=== PATIENT | male | born 1945 | race Caucasian/White ===

== ENCOUNTER → 2018-06-19 08:22 | Outpatient (BNVA) | payer MEDICARE, SELFPAY | PROVIDERS: PCP Family Medicine; Visit Provider Nurse Practitioner Adult Health | DX: G30.9 Alzheimer's disease, unspecified (principal); F02.81 Dementia in other diseases classified elsewhere, unspecified severity, with behavioral disturbance | CPT/HCPCS: 99213 ==

== ENCOUNTER 2018-06-27 13:11 | Outpatient (CLI) | payer MEDICARE, SELFPAY ==
[2018-06-27 15:21] LABS: Vitamin B12 1076 pg/mL (193-986)
== END 2018-06-27 13:31 ==
PROVIDERS: PCP Family Medicine; Visit Provider Nurse Practitioner Adult Health
DX: G30.9 Alzheimer's disease, unspecified (principal)
CPT/HCPCS: 36415; 82607

== ENCOUNTER 2018-07-17 00:07 | Outpatient (CLI) | payer MEDICARE, SELFPAY ==
--- NOTE | 2018-07-17 09:30 | MERGEMPI_ITS ---
*[facility]* *[facility]* [address] [place] [address] Myocardial Perfusion Imaging - SPECT Regadenoson Date of study: 07/17/2018 *PATIENT PRESENTATION* Height: 182.9cm (72in) Blood Pressure: Weight: 75kg (165lb) BSA: 1.95m^2 Referring physician: Deonte Ring MD Ordering physician: Maynor Roe Impressions: Normal perfusion by Tc99m Sestamibi Imaging. Summary: 1. Myocardial perfusion imaging: No myocardial perfusion defects noted. No gated images. Indication: R07.9. History: REASON FOR TESTING: APPROXIMATELY TWO WEEKS AGO PATIENT REPORTED RIGHT SIDED CHEST PAIN AND RIGHT SIDED LEG PAIN. THERE WAS NO ASSOCIATED SOB OR NAUSEA WITH THIS EPISODE. PAST MEDICAL HISTORY: HYPOMAGNESIA. BRADYCARDIA. HYPERTENSION. ANXIETY. ALZEIMERS DEMENTIA. SMOKING HISTORY: 20+ PPD. QUIT 1988. EXERCISE: NO PURPOSEFUL DAILY EXERCISE ROUTINE. Risk factors: Hypertension. Dyslipidemia. ALLERGIES: NO KNOWN DRUG ALLERGIES. MEDICATIONS: ASPIRIN 81 MG DAILY. SIMVASTATIN 20 MG DAILY. SERTRALINE 100 MG DAILY. DIVALPROEX 250 MG DELAYED RELEASE BID. CHOLECALCIFEROL DOSE UNKNOWN DAILY. MAGNESIUM OXIDE 400 MG DAILY. Imaging Technique: Protocol: Regadenoson. Acquisition: Gated SPECT; 1 day - rest/stress. The patient was imaged in the supine position. Attenuation correction used. Isotope administration: - Rest. Tc[99m]-sestamibi. Dose: 10.4mCi. Injection time: 09:30 AM. Injection to stress time: 00:45. - Stress. Tc[99m]-sestamibi. Dose: 33.1mCi. Injection time: 11:05 AM. 1-2 min before end of exercise Baseline ECG: SINUS JOSE MANUEL. HR 48 BPM. Stress protocol: +--------+--+ + + !Stage !HR!BP (mmHg) !Comments ! +--------+--+ + + !Baseline!48!182/78 (113)! ! +--------+--+ + + !1 min !65!166/74 (105)!Inject Regadenoson.! +--------+--+ + + !3 min !57!166/86 (113)! ! +--------+--+ + + !6 min !54!160/80 (107)! ! +--------+--+ + + * Stress results: The rate-pressure product for the peak heart rate and blood pressure was 82336bw Hg/min. Stress ECG: STRESS TEST ENDED IN 7 MINUTES & 15 SECONDS. PT EXPERIENCED NO SIGNIFICANT SIDE EFFECTS FROM LEXISCAN INJECTION. NORMAL HEART RATE AND BLOOD PRESSURE RESPONSE TO LEXISCAN INJECITION. NO ECTOPY. NO ANGINA. NO SIGNIFICANT ST SEGMENT CHANGES. Myocardial perfusion: Imaging information: gated. No myocardial perfusion defects noted. Study data: Deonte Ring MD supervised and was readily available during the procedure. This study was interpreted by [facility]. Study status: Routine. Consent: The risks, benefits, and alternatives to the procedure were explained to the patient and informed consent was obtained. Procedure: Initial setup. A baseline ECG was recorded. Surface ECG leads and manual cuff blood pressure measurements were monitored. Heart sounds: Normal. Lung sounds: Normal. Regadenoson stress test. Stress testing was performed, with regadenoson by intravenous bolus, for a total dose of 0.4mgover 10.00sec, followed by a 5ml saline flush. The infusion was terminated due to per protocol. The patient was unable to exercise due to cognitive impairment. Study completion: All catheters inserted during the procedure were removed. The patient tolerated the procedure well and was discharged from the lab. Discharge: The patient left the laboratory in stable condition. Birthdate: Patient birthdate: 1945. Sex: Gender: male. Study date: Study date: 07/17/2018. Study time: 09:30 AM. Electronically signed by Deonte Ring MD 07/17/2018 17:55
[2018-07-17] MEDS: Regadenoson 0.4 MG/5 ML SYR IVP (10:55)
== END 2018-07-17 00:27 ==
PROVIDERS: PCP Family Medicine; Visit Provider Family Medicine
DX: R07.89 Other chest pain (principal); I10 Essential (primary) hypertension
CPT/HCPCS: 78452; 93016; 93018; 93017; J2785

== ENCOUNTER 2018-10-12 10:17 | Inpatient (IN) | payer OTHER, SELFPAY ==
[2018-10-12 10:45] VITALS: BP 118/72; PULSE 50; RESP 20; TEMP 37.2; O2SAT 100
[2018-10-12] MEDS: risperiDONE 1 MG TAB PO ×2 (13:29→21:04)
--- NOTE | 2018-10-12 15:15 | W.PM.HP.N ---
Date of service: 10/12/18 Assessment and Plan (1) Vascular dementia with behavior disturbance: Current visit: Yes Status: Acute Will try to have sitter with Bill as much as we can. Iona needs a break. She is exhausted. Advised her not to come in tomorrow, but ok for Tuesday. Will check in by phone with her. SHAHID Bagley came into the room and cleared it of potentially dangerous items. Scheduled risperidone 1 mg q 6 hrs, round the clock. May need to decrease IF he becomes too sedated. Explained to family that he is here on hospice symptom management so we can figure out what is the best dose for him. Would like to be able to back down to bid for ease of medication administration, but not sure of dose. With behavioral component. Risperidone for now. Is on depakote already, too. Would increase depakote as next step. Try to use redirection as much as possible Sitter would be helpful. (2) Frontotemporal dementia: Current visit: Yes Status: Acute Mixed dementia. (3) Hospice care patient: Current visit: Yes Status: Acute Here on symptom management. Once we get Bill stabilized, will transfer him over to 5 night respite. Again, waiting for [facility] Admission, ideally. family is looking into [facility], too. History of Present Illness Chief Complaint: dementia with agitation, combination vascular and frontotemporal Consults Consult date: 10/12/18 Narrative: 73 yo man recently admitted to hospice about 2 weeks ago with worsening dementia, mixed vascular and frontotemporal type with behavioral disturbance. I saw him once for palliative care on 09/29 and based on his symptoms and reported rate of decline, recommended hospice. Family is trying to get him permanently admitted to [facility], as they live in [place] and proximity would make visiting him easier for his . Have spoken to Dr. Limon from [facility] about him. Family has filled out application. Just waiting for a bed to open up on their memory unit. Today, Mr. Kelly is at [facility] for symptom mangement. The last two days, he has been more agitated than usual. He refused to go to [facility] yesterday. There was a new minibus driver and Bill didn't feel comfortable going with him. The snow was falling and Iona, his , said he wanted to shovel, not go. It's possible that he thought the minibus driver was keeping him from his duties at home. It took Iona a while to get Bill inside. Once inside, she had to lock the door to keep him in. He kept looking at the snow falling and feeling agitated. Their son-in-law came over to help. Yesterday afternoon, the hospice nurse visited and instructed Iona and her family on scheduled risperidone. They gave Bill 1 mg at 2 pm 10/11 and he calmed down in 25-30 minutes. His put him to bed at 6:30 with another tablet. He slept until 1 am and woke up due to having saturated his depends. He wouldn't let her change him entirely so she just took off the depends and put him back to bed. His family noted that he's generally into everything. They recommended we take items out of his room that he could take apart. He has taken apart phones at home. He likes shuffling paper, and writing (though it makes no sense). He used to be an intermediate accountant. Per his family, his home is safe. His hid all knives and they have no guns. Finally, his family suggested that his meat be cut up for him and his food presented just one plate or bowl at a time as he gets confused and overwhelmed with too many choices. Review of Systems Review of Systems All systems reviewed & are unremarkable except as noted in HPI and below Constitutional Reports daytime sleepiness, Reports difficulty sleeping, Reports fatigue, Reports fever(s), Reports poor appetite, Reports weakness and Reports weight loss Eyes Reports requires corrective lenses ENT Reports halitosis and Reports dry mouth Cardiovascular Reports pedal edema Respiratory Denies cough Gastrointestinal Reports early satiety and Reports fecal incontinence Genitourinary Reports urinary incontinence Musculoskeletal Reports muscle weakness Integumentary/Breasts Reports dry skin Neurologic Reports behavioral changes, Reports confusion, Reports lack of coordination, Reports memory loss and Reports weakness Psychiatric Reports behavioral changes, Reports confusion and Reports memory loss Endocrine Reports fatigue [facility] Medical History Hypomagnesemia (Acute) Actinic keratitis (Acute) Bradycardia (Chronic) Generalized headaches (Chronic) Vitamin D deficiency (Chronic) Depression (Chronic) Hypertension (Chronic) Anxiety (Chronic) Alzheimer's dementia (Chronic) Frontotemporal dementia (Chronic) Vascular dementia (Chronic) Social History adopted: No caregiver/support person: Yes foster care: No household members: spouse housing: house lives independently: No number of children: 2 number of grandchildren: 2 current occupational status: retired leisure activities: clubs well-balanced diet: about half the time eating out: rarely or never reads food labels: seldom or never Smoking/Tobacco Use Status: Former Tobacco Use seatbelt use: always working smoke detector in home: Yes fire extinguisher in home: No carbon monox detector in home: Yes firearms in home: No Meds Home Medications Medication Instructions Recorded Confirmed Type aspirin [Aspirin Low-Strength] 81 mg PO DAILY 12/21/12 06/19/18 History cholecalciferol (vitamin D3) 2 tab PO DAILY 10/15/15 09/29/18 History sertraline 100 mg PO DAILY 10/15/15 09/29/18 History magnesium oxide 400 mg PO DAILY 11/22/17 09/29/18 History simvastatin 20 mg PO DAILY tab-cap 11/22/17 06/19/18 History divalproex 250 mg tablet,delayed 250 mg PO BID #90 tab-cap 06/19/18 09/29/18 Rx release cetirizine 10 mg tablet 10 mg PO DAILY PRN tab 09/29/18 09/29/18 History risperidone 0.5 mg tablet 0.5 mg PO DAILY 09/29/18 09/29/18 History acetaminophen [Tylenol Extra 1,000 mg PO TID 10/12/18 10/12/18 History Strength] acetaminophen [Tylenol] 650 mg PO Q6H PRN 10/12/18 10/12/18 History cyanocobalamin (vitamin B-12) 1,000 mcg PO DAILY 10/12/18 10/12/18 History [Vitamin B-12] haloperidol lactate [Haldol] 0.5 ml Q6H PRN 10/12/18 History hyoscyamine sulfate mg PO Q4H PRN 10/12/18 History lorazepam [Ativan] 1 mg PO Q6H 10/12/18 10/12/18 History melatonin 3 mg PO HS PRN 10/12/18 10/12/18 History morphine concentrate ml SUBLINGUAL Q1H PRN 10/12/18 History polyethylene glycol 3350 [Miralax] 17 g PO DAILY 10/12/18 10/12/18 History prochlorperazine maleate 10 mg PO Q6H PRN 10/12/18 10/12/18 History sodium phosphates [Fleet Enema] 197 ml [place] DAILY 10/12/18 10/12/18 History trazodone 50 mg PO DAILY 10/12/18 10/12/18 History Allergies Allergy/AdvReac Type Severity Reaction Status Date / Time No Known Allergies Allergy Unverified 06/19/18 08:44 Exam Const General: cooperative, healthy appearing, comfortable, no acute distress and well groomed Nutritional Appearance: average body habitus Orientation: alert, awake and oriented to person Limitations: altered mental status [facility] Head: normal to inspection, normocephalic and atraumatic Ears: hearing grossly normal bilaterally General nose exam: external nose normal Eyes General: appearance normal, both eyes and all related structures Neck Neck: normal visual inspection, no lymphadenopathy and no JVD Resp Effort & Inspection: normal respiratory effort and able to speak in complete sentences Auscultation: clear to auscultation bilaterally Cardio Jugular venous pressure: no JVD Rate: regular rate Rhythm: regular rhythm Heart Sounds: S1 normal and S2 normal GI Inspection: normal to inspection Palpation: soft Auscultation: normal bowel sounds Skin General skin exam: no rashes or lesions noted and dry skin Trauma: no lacerations or abrasions Neuro General: alert and awake Cognition: abnormal cognition Speech: abnormal speech, expressive aphasia and receptive aphasia Motor: strength 5/5 throughout Sensory Exam: no sensory deficits noted Extrem General: edema, muscle atrophy and pedal edema Psych Appearance: grossly normal and well kempt Speech and Movement: delayed speech and slowed movement Mood: euthymic mood Affect: indifferent and blunted Attitude: cooperative Thought Process: illogical, impoverished, loose association and tangential Insight: poor Judgment: poor Results Last Vital Signs Temp 99.0 F 10/12/18 10:45 Pulse 50 L 10/12/18 10:45 Resp 20 10/12/18 10:45 BP 118/72 10/12/18 10:45 Pulse Ox 100 10/12/18 10:45
--- NOTE | 2018-10-12 15:23 | HPE_ITS ---
Date of service: 10/12/18 Assessment and Plan (1) Vascular dementia with behavior disturbance: Current visit: Yes Status: Acute Will try to have sitter with Bill as much as we can. Iona needs a break. She is exhausted. Advised her not to come in tomorrow, but ok for Tuesday. Will check in by phone with her. SHAHID Bagley came into the room and cleared it of potentially dangerous items. Scheduled risperidone 1 mg q 6 hrs, round the clock. May need to decrease IF he becomes too sedated. Explained to family that he is here on hospice symptom management so we can figure out what is the best dose for him. Would like to be able to back down to bid for ease of medication administration, but not sure of dose. With behavioral component. Risperidone for now. Is on depakote already, too. Would increase depakote as next step. Try to use redirection as much as possible Sitter would be helpful. (2) Frontotemporal dementia: Current visit: Yes Status: Acute Mixed dementia. (3) Hospice care patient: Current visit: Yes Status: Acute Here on symptom management. Once we get Bill stabilized, will transfer him over to 5 night respite. Again, waiting for [facility] Admission, ideally. family is looking into [facility], too. History of Present Illness Chief Complaint: dementia with agitation, combination vascular and frontotemporal Consults Consult date: 10/12/18 Narrative: 73 yo man recently admitted to hospice about 2 weeks ago with worsening dementia, mixed vascular and frontotemporal type with behavioral disturbance. I saw him once for palliative care on 09/29 and based on his symptoms and reported rate of decline, recommended hospice. Family is trying to get him permanently admitted to [facility], as they live in [place] and proximity would make visiting him easier for his . Have spoken to Dr. Limon from [facility] about him. Family has filled out application. Just waiting for a bed to open up on their memory unit. Today, Mr. Kelly is at [facility] for symptom mangement. The last two days, he has been more agitated than usual. He refused to go to [facility] yesterday. There was a new tractor trailer driver and Bill didn't feel comfortable going with him. The snow was falling and Iona, his , said he wanted to shovel, not go. It's possible that he thought the tractor trailer driver was keeping him from his duties at home. It took Iona a while to get Bill inside. Once inside, she had to lock the door to keep him in. He kept looking at the snow falling and feeling agitated. Their son-in-law came over to help. Yesterday afternoon, the hospice nurse visited and instructed Iona and her family on scheduled risperidone. They gave Bill 1 mg at 2 pm 10/11 and he calmed down in 25-30 minutes. His put him to bed at 6:30 with another tablet. He slept until 1 am and woke up due to having saturated his depends. He wouldn't let her change him entirely so she just took off the depends and put him back to bed. His family noted that he's generally into everything. They recommended we ta ke items out of his room that he could take apart. He has taken apart phones at home. He likes shuffling paper, and writing (though it makes no sense). He used to be an senior accountant. Per his family, his home is safe. His hid all knives and they have no guns. Finally, his family suggested that his meat be cut up for him and his food presented just one plate or bowl at a time as he gets confused and overwhelmed with too many choices. Review of Systems Review of Systems All systems reviewed & are unremarkable except as noted in HPI and below Constitutional Reports daytime sleepiness, Reports difficulty sleeping, Reports fatigue, Reports fever(s), Reports poor appetite, Reports weakness and Reports weight loss Eyes Reports requires corrective lenses ENT Reports halitosis and Reports dry mouth Cardiovascular Reports pedal edema Respiratory Denies cough Gastrointestinal Reports early satiety and Reports fecal incontinence Genitourinary Reports urinary incontinence Musculoskeletal Reports muscle weakness Integumentary/Breasts Reports dry skin Neurologic Reports behavioral changes, Reports confusion, Reports lack of coordination, Reports memory loss and Reports weakness Psychiatric Reports behavioral changes, Reports confusion and Reports memory loss Endocrine Reports fatigue [facility] Medical History Hypomagnesemia (Acute) Actinic keratitis (Acute) Bradycardia (Chronic) Generalized headaches (Chronic) Vitamin D deficiency (Chronic) Depression (Chronic) Hypertension (Chronic) Anxiety (Chronic) Alzheimer's dementia (Chronic) Frontotemporal dementia (Chronic) Vascular dementia (Chronic) Social History adopted: No caregiver/support person: Yes foster care: No household members: spouse housing: house lives independently: No number of children: 2 number of grandchildren: 2 current occupational status: retired leisure activities: clubs well-balanced diet: about half the time eating out: rarely or never reads food labels: seldom or never Smoking/Tobacco Use Status: Former Tobacco Use seatbelt use: always working smoke detector in home: Yes fire extinguisher in home: No carbon monox detector in home: Yes firearms in home: No Meds Home Medications Medication Instructions Recorded Confirmed Type aspirin [Aspirin Low-Strength] 81 mg PO DAILY 12/21/12 06/19/18 History cholecalciferol (vitamin D3) 2 tab PO DAILY 10/15/15 09/29/18 History sertraline 100 mg PO DAILY 10/15/15 09/29/18 History magnesium oxide 400 mg PO DAILY 11/22/17 09/29/18 History simvastatin 20 mg PO DAILY tab-cap 11/22/17 06/19/18 History divalproex 250 mg tablet,delayed 250 mg PO BID #90 tab-cap 06/19/18 09/29/18 Rx release cetirizine 10 mg tablet 10 mg PO DAILY PRN tab 09/29/18 09/29/18 History risperidone 0.5 mg tablet 0.5 mg PO DAILY 09/29/18 09/29/18 History acetaminophen [Tylenol Extra 1,000 mg PO TID 10/12/18 10/12/18 History Strength] acetaminophen [Tylenol] 650 mg PO Q6H PRN 10/12/18 10/12/18 History cyanocobalamin (vitamin B-12) 1,000 mcg PO DAILY 10/12/18 10/12/18 History [Vitamin B-12] haloperidol lactate [Haldol] 0.5 ml Q6H PRN 10/12/18 History hyoscyamine sulfate mg PO Q4H PRN 10/12/18 History lorazepam [Ativan] 1 mg PO Q6H 10/12/18 10/12/18 History melatonin 3 mg PO HS PRN 10/12/18 10/12/18 History morphine concentrate ml SUBLINGUAL Q1H PRN 10/12/18 History polyethylene glycol 3350 [Miralax] 17 g PO DAILY 10/12/18 10/12/18 History prochlorperazine maleate 10 mg PO Q6H PRN 10/12/18 10/12/18 History sodium phosphates [Fleet Enema] 197 ml [place] DAILY 10/12/18 10/12/18 History trazodone 50 mg PO DAILY 10/12/18 10/12/18 History Allergies Allergy/AdvReac Type Severity Reaction Status Date / Time No Known Allergies Allergy Unverified 06/19/18 08:44 Exam Const General: cooperative, healthy appearing, comfortable, no acute distress and well groomed Nutritional Appearance: average body habitus Orientation: alert, awake and oriented to person Limitations: altered mental status [facility] Head: normal to inspection, normocephalic and atraumatic Ears: hearing grossly normal bilaterally General nose exam: external nose normal Eyes General: appearance normal, both eyes and all related structures Neck Neck: normal visual inspection, no lymphadenopathy and no JVD Resp Effort & Inspection: normal respiratory effort and able to speak in complete sentences Auscultation: clear to auscultation bilaterally Cardio Jugular venous pressure: no JVD Rate: regular rate Rhythm: regular rhythm Heart Sounds: S1 normal and S2 normal GI Inspection: normal to inspection Palpation: soft Auscultation: normal bowel sounds Skin General skin exam: no rashes or lesions noted and dry skin Trauma: no lacerations or abrasions Neuro General: alert and awake Cognition: abnormal cognition Speech: abnormal speech, expressive aphasia and receptive aphasia Motor: strength 5/5 throughout Sensory Exam: no sensory deficits noted Extrem General: edema, muscle atrophy and pedal edema Psych Appearance: grossly normal and well kempt Speech and Movement: delayed speech and slowed movement Mood: euthymic mood Affect: indifferent and blunted Attitude: cooperative Thought Process: illogical, impoverished, loose association and tangential Insight: poor Judgment: poor Results Last Vital Signs Temp 99.0 F 10/12/18 10:45 Pulse 50 L 10/12/18 10:45 Resp 20 10/12/18 10:45 BP 118/72 10/12/18 10:45 Pulse Ox 100 10/12/18 10:45
--- NOTE | 2018-10-12 16:53 | PDOC.CMPRO ---
- If Service Date Differs Date of service: 10/12/18 Time of Service: 16:53 Care Management Progress Note CM met with Alfredo and his family and spoke with rental coordinator. Venkatesh's family is at the bedside, Venkatesh is alert and talkative. 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 CM reviewed risk with CCRN and contacted nursing instrumentation supervisor and requested patient observer to sit with Venkatesh while he is here at [facility]. CM also reviewed with family the importance of visiting family member often and providing comfort at of familiar people to decrease confusion related to new environment. Family states they will not be able to stay all the time however will visit when possible. SHAYNE contacted [facility] and spoke with LIN West to review resources she reports the human resources project coordinator will return tomorrow and she will have her reach out to the Nursing instrumentation supervisor to provide support when able. Jenna reports the plan is to have Venkatesh transition to the [facility] while he awaits bed availability at [facility]. Sushma Lovelace is the case technician through [facility] for Venkatesh. Anticipated length of stay 5 days for symptom management.
--- NOTE | 2018-10-12 17:04 | CMPROGNOTE_ITS ---
- If Service Date Differs Date of service: 10/12/18 Time of Service: 16:53 Care Management Progress Note CM met with Alfredo and his family and spoke with systems coordinator. Venkatesh's family is at the bedside, Venkatesh is alert and talkative. 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 CM reviewed risk with CCRN and contacted nursing supervisor extrusion and requested patie nt observer to sit with Venkatesh while he is here at [facility]. CM also reviewed with family the importance of visiting family member often and providing comfort at of familiar people to decrease confusion related to new environment. Family states they will not be able to stay all the time however will visit when possible. SHAYNE contacted [facility] and spoke with LIN West to review resources she reports the cis coordinator will return tomorrow and she will have her reach out to the Nursing supervisor extrusion to provide support when able. Jenna reports the plan is to have Venkatesh transition to the [facility] while he awaits bed availability at [facility]. Sushma Lovelace is the keycase assembler through [facility] for Venkatesh. Anticipated length of stay 5 days for symptom management.
[2018-10-12] MEDS: LORazepam 1 MG TAB PO (21:04)
[2018-10-12] MEDS: Divalproex 250 MG TABEC PO (21:04)
[2018-10-13] MEDS: LORazepam 1 MG TAB PO (07:00)
[2018-10-13] MEDS: risperiDONE 1 MG TAB PO ×2 (07:00→14:18)
--- NOTE | 2018-10-13 07:01 | NUR.NOTE ---
Nursing Note: Pt slept well all through the night. At approximately 0655 his bed alarm went off and pt was standing at bedside. He is very demented and unable to follow commands or communicate. He does not cooperate with any attempt to provide care and was pushing staff as we attempted toremove his saturated brief and replace it. We were not able to dress him more and he continued to be combative. PRN and scheduled medications given.Cadre is now with pt again.
--- NOTE | 2018-10-13 08:56 | PDOC.CMIN ---
Care Management Initial Assess REASON FOR HOSPITALIZATION:: Hospice Symptom Management PAST MEDICAL HISTORY/PAST SURGICAL HISTORY:: Actinic keratitis, alzheimer's dementia, anxiety, bradycardia, depression, frontotemporal dementa, generalized headaches, hypertension, hypomagnesemia, vascular dementa, vitamin D deficiency PREVIOUS FUNCTIONAL STATUS/SOCIAL/FAMILY SUPPORTS:: Alfredo resides with his , Iona in [place], [place]. He spends his daytime hours at the [facility] and is primarily supported in the community by the Hospice program. CURRENT FUNCTIONAL STATUS:: Venkatesh is sitting in his chair, support person in the room with him. He is quiet, does not speak and stays sitting during CM visit and visit with social worker psychiatric from [facility], and daughter. ADVANCE DIRECTIVES:: COLST Has patient been provided with information about the portal?: No Did the patient sign up for the portal?: No INSURANCE COVERAGE / FINANCIAL ISSUES:: Hospice, AARP, Medicare CURRENT HOME/COMMUNITY SERVICES/EQUIPMENT:: Hospice PRIMARY CARE PHYSICIAN:: Dr. Patricia Arambula POTENTIAL DISCHARGE NEEDS:: Coordinated discharge with [facility] team. PATIENT/FAMILY EDUCATION NEEDS:: Review of Hospice hospitalization process, services and limitations. ANTICIPATED BARRIERS TO DISCHARGE:: None identified. TRANSPORTATION:: Via private vehicle with [id number]. PLAN:: Alfredo will continue to be monitored and his medications adjusted. He will transfer to Hospice Respite once stable. He will transport via private [id number]. CM will continue to follow and coordinate discharge considerations with [facility].
[2018-10-13] MEDS: Sertraline 50 MG TAB 100 MG PO (11:35)
[2018-10-13] MEDS: Divalproex 250 MG TABEC PO (11:35)
[2018-10-13 11:46] VITALS: BP 113/73; PULSE 54; RESP 20; TEMP 35.9; O2SAT 100
--- NOTE | 2018-10-13 12:25 | W.PM.PROGNOT ---
Date of Service Date of service: 10/13/18 Time of Service: 10:48 Assessment and Plan (1) Hospice care patient: Current visit: Yes Status: Acute Admitted to [facility] for symptom management under his hospice benefit. Oversedated at this time. Risperidone dose dropped from 1 mg qid to 1 mg tid scheduled. Lorazepam to be given ONLY with SEVERE agitation PRN, 0.5-1 mg. Not eating much. Not accepting hand-feeding. Trying to reduce confusion by only presenting one plate of food at a time. Has one-on-one sitter with him. Continue symptom management. (2) Frontotemporal dementia: Current visit: Yes Status: Acute (3) Vascular dementia with behavior disturbance: Current visit: Yes Status: Acute Subjective Interval history since last seen: Started on scheduled risperidone 1 mg qid. Also received lorazepam 1 mg this am. Combination of medication over-sedating. Daughter Lianne present and upset by this, per nursing. He was beginning to wake up before she left and she reportedly felt better. He was refusing to be fed. Refused mashed potatoes and chicken. I drinking diet coke. Nurse reports he ate a donut for breakfast. Musician played guitar for him. Not agitated. Sleepy. Doesn't want to get into bed. Exam Const General: cooperative, healthy appearing, comfortable, no acute distress and well groomed Nutritional Appearance: average body habitus Orientation: alert, awake and oriented to person Limitations: altered mental status [facility] Head: normal to inspection, normocephalic and atraumatic Ears: hearing grossly normal bilaterally General nose exam: external nose normal Eyes General: appearance normal, both eyes and all related structures Neck Neck: normal visual inspection, no lymphadenopathy and no JVD Resp Effort & Inspection: normal respiratory effort and able to speak in complete sentences Auscultation: clear to auscultation bilaterally Cardio Jugular venous pressure: no JVD Rate: regular rate Rhythm: regular rhythm Heart Sounds: S1 normal and S2 normal GI Inspection: normal to inspection Palpation: soft Auscultation: normal bowel sounds Skin General skin exam: no rashes or lesions noted and dry skin Trauma: no lacerations or abrasions Neuro General: alert and awake Cognition: abnormal cognition Speech: abnormal speech, expressive aphasia and receptive aphasia Motor: strength 5/5 throughout Sensory Exam: no sensory deficits noted Extrem General: edema, muscle atrophy and pedal edema Psych Appearance: grossly normal and well kempt Speech and Movement: delayed speech and slowed movement Mood: euthymic mood Affect: indifferent and blunted Attitude: cooperative Thought Process: illogical, impoverished, loose association and tangential Insight: poor Judgment: poor Objective Objective Clinical Data: Vital Signs Temperature 99.0 F 10/12/18 10:45 Pulse 50 L 10/12/18 10:45 Pulse Rhythm Regular 10/12/18 10:45 Respiratory Rate 20 10/12/18 10:45 Respiratory Effort 10/12/18 20:06 Respiratory Depth Normal 10/12/18 20:06 Respiratory Pattern Normal 10/12/18 20:06 Blood Pressure 118/72 10/12/18 10:45 Pulse Oximetry 100 10/12/18 10:45 Oxygen Delivery Method Room Air 10/12/18 10:45 Oxygen Flow Rate 0 10/12/18 10:45 Pain Level 0 10/12/18 10:45 Comment 10/12/18 10:45 Intake & Output 10/12/18 10/13/18 10/13/18 23:59 11:59 23:59 Intake Total 450 / 450 120 / 120 Balance 450 / 450 120 / 120 Intake: Oral 450 / 450 120 / 120 Other: Voiding Methods Diaper Incontinent
--- NOTE | 2018-10-13 16:08 | CHAPLAIN ---
SHAHID Soliz, was with Bill when I visited this afternoon to give Bill a prayer shawl. Bill was sleeping. I will plan to visit when family is here next time.
--- NOTE | 2018-10-13 16:44 | INITIAL_ITS ---
Care Management Initial Assess REASON FOR HOSPITALIZATION:: Hospice Symptom Management PAST MEDICAL HISTORY/PAST SURGICAL HISTORY:: Actinic keratitis, alzheimer's dementia, anxiety, bradycardia, depression, frontotemporal dementa, generalized headaches, hypertension, hypomagnesemia, vascular dementa, vitamin D deficiency PREVIOUS FUNCTIONAL STATUS/SOCIAL/FAMILY SUPPORTS:: Alfredo resides with his , Iona in [place], [place]. He spends his daytime hours at the [facility] and is primarily supported in the community by the Hospice program. CURRENT FUNCTIONAL STATUS:: Venkatesh is sitting in his chair, support person in the room with him. He is quiet, does not speak and stays sitting during CM visit and visit with psychiatric social worker supervisor from [facility], and daughter. ADVANCE DIRECTIVES:: COLST Has patient been provided with information about the portal?: No Did the patient sign up for the portal?: No INSURANCE COVERAGE / FINANCIAL ISSUES:: Hospice, AARP, Medicare CURRENT HOME/COMMUNITY SERVICES/EQUIPMENT:: Hospice PRIMARY CARE PHYSICIAN:: Dr. Patricia Arambula POTENTIAL DISCHARGE NEEDS:: Coordinated discharge with [facility] and Hospice team. PATIENT/FAMILY EDUCATION NEEDS:: Review of Hospice hospitalization process, services and limitations. ANTICIPATED BARRIERS TO DISCHARGE:: None identified. TRANSPORTATION:: Via private vehicle with [id number]. PLAN:: Alfredo will continue to be monitored and his medications adjusted. He will transfer to Hospice Respite once stable. He will transport via private [id number]. CM will continue to follow and coordinate discharge conside rations with [facility].
[2018-10-14] MEDS: Sertraline 50 MG TAB 100 MG PO (07:38)
[2018-10-14] MEDS: risperiDONE 1 MG TAB PO ×3 (07:38→20:09)
[2018-10-14] MEDS: Divalproex 250 MG TABEC PO ×2 (07:38→20:09)
--- NOTE | 2018-10-14 09:44 | PDOC.CMPRO ---
Care Management Progress Note Alfredo continues to be closely monitored and his medications adjusted by Dr. Arambula at this time; he remains on symptom management level of care though Hospice at this time though Dr. Arambula reports if stable through the night he may be able to transition to respite tomorrow. Dr. Arambula shares concerns regarding disposition-CM will continue to follow.
--- NOTE | 2018-10-14 11:15 | W.PM.PROGNOT ---
Date of Service Date of service: 10/14/18 Time of Service: 10:15 Assessment and Plan (1) Hospice care patient: Current visit: Yes Status: Acute Restless. Cooperative but needing supervision. Hard to imagine his , Iona, being able to care for him on her own. If unchanged tomorrow, will need to transition him to respite care. Not sure when bed available to him in community. Did speak with Dr. Limon, of the [facility]. Unable to admit this coming week. Continue to work with CM at [facility] and Emmy Lovelace, Hospice INTELLIGENCE AGENT. (2) Frontotemporal dementia: Current visit: Yes Status: Acute Doing ok on the risperidone dosing, though his having refused his dose last night makes it hard to tell his steady state. May need to give Haldol-Depot tomorrow. Will re-evaluate. (3) Vascular dementia with behavior disturbance: Current visit: Yes Status: Acute Subjective Interval history since last seen: Refused his meds last night. Restless this am. Undid his bed. Emptied his suitcase. Busy. Did eat ice cream and butterscotch pudding this am. Took crushed pills in latter. Not oversedated this am. Has sitter with him. Pleasant. Redirectable. Haven't seen family yet today. Asking them to bring in slippers and photos from home. Still not eating much, just drinking diet coke, coffee, eating ice cream and pudding. Requiring one-on-one as he is not safe to be alone. No aggressiveness. Exam Const General: cooperative and healthy appearing Nutritional Appearance: average body habitus Orientation: alert, awake and oriented to person [facility] Head: normal to inspection Ears: hearing grossly normal bilaterally General nose exam: external nose normal Face and sinus: dry mucous membranes Eyes General: appearance normal, both eyes and all related structures Neck Neck: normal visual inspection and no lymphadenopathy Resp Effort & Inspection: normal respiratory effort Auscultation: clear to auscultation bilaterally Cardio Jugular venous pressure: no JVD Rate: regular rate Rhythm: regular rhythm GI Inspection: normal to inspection Palpation: soft Auscultation: normal bowel sounds Skin General skin exam: no rashes or lesions noted and dry skin Neuro General: alert, awake and moves all extremities Cognition: abnormal cognition Speech: abnormal speech garbled and slurred, anomia and expressive aphasia Gait: ataxic Sensory Exam: no sensory deficits noted Extrem General: pedal edema (right worse than left) Psych Appearance: well kempt (has not showered at [facility], allowed sitter to brush his hair for him) Speech and Movement: delayed speech, restless and slowed movement Mood: congruent mood Affect: indifferent and blunted Attitude: cooperative Thought Process: impoverished and loose association Thought Content: other (does not speak enough linked words to enable me to understand content) Insight: poor Judgment: poor Objective Objective Clinical Data: Vital Signs Temperature 96.6 F L 10/13/18 11:46 Temperature Source Tympanic 10/13/18 11:46 Pulse 54 L 10/13/18 11:46 Pulse Rhythm Regular 10/12/18 10:45 Respiratory Rate 20 10/13/18 11:46 Respiratory Effort 10/14/18 03:00 Respiratory Depth Normal 10/14/18 03:00 Respiratory Pattern Normal 10/14/18 03:00 Blood Pressure 113/73 10/13/18 11:46 Pulse Oximetry 100 10/13/18 11:46 Oxygen Delivery Method Room Air 10/13/18 11:46 Oxygen Flow Rate 0 10/13/18 11:46 Pain Level 0 10/12/18 10:45 Comment 10/13/18 11:46 Intake & Output 10/13/18 10/13/18 10/14/18 11:59 23:59 11:59 Intake Total 120 / 120 340 / 340 Balance 120 / 120 340 / 340 Intake: Oral 120 / 120 340 / 340 Other: Urine Color Yellow Urine Appearance Clear Comment pt incontinent of small amounts of urine. urinated in bed and on the floor Stool Size Large Stool Characteristics Soft Formed Brown Voiding Methods Diaper Incontinent Toilet Incontinent Laboratory Results WBC Cancelled 10/13/18 15:06 RBC Cancelled 10/13/18 15:06 Hgb Cancelled 10/13/18 15:06 Hct Cancelled 10/13/18 15:06 MCV Cancelled 10/13/18 15:06 MCH Cancelled 10/13/18 15:06 MCHC Cancelled 10/13/18 15:06 RDW Cancelled 10/13/18 15:06 Plt Count Cancelled 10/13/18 15:06 MPV Cancelled 10/13/18 15:06 Abs Immat Gran (auto) Cancelled 10/13/18 15:06 Immature Gran % Cancelled 10/13/18 15:06 Neutrophils % Cancelled 10/13/18 15:06 Lymphocytes % Cancelled 10/13/18 15:06 Monocytes % Cancelled 10/13/18 15:06 Eosinophils % Cancelled 10/13/18 15:06 Basophils % Cancelled 10/13/18 15:06 Absolute Neutrophils Cancelled 10/13/18 15:06 Band Neutrophils Cancelled 10/13/18 15:06 Absolute Lymphocytes Cancelled 10/13/18 15:06 Absolute Monocytes Cancelled 10/13/18 15:06 Absolute Eosinophils Cancelled 10/13/18 15:06 Absolute Basophils Cancelled 10/13/18 15:06 Metamyelocytes Cancelled 10/13/18 15:06 Myelocytes Cancelled 10/13/18 15:06 Promyelocytes Cancelled 10/13/18 15:06 Nucleated RBCs Cancelled 10/13/18 15:06 Differential Comment Cancelled 10/13/18 15:06 Atypical Lymphocytes Cancelled 10/13/18 15:06 Other Cell Type Cancelled 10/13/18 15:06 RBC Morphology Cancelled 10/13/18 15:06 Polychromasia Cancelled 10/13/18 15:06 Hypochromasia Cancelled 10/13/18 15:06 Poikilocytosis Cancelled 10/13/18 15:06 Basophilic Stippling Cancelled 10/13/18 15:06 Anisocytosis Cancelled 10/13/18 15:06 Microcytosis Cancelled 10/13/18 15:06 Macrocytosis Cancelled 10/13/18 15:06 Spherocytes Cancelled 10/13/18 15:06 Target Cells Cancelled 10/13/18 15:06 Tear Drop Cells Cancelled 10/13/18 15:06 Ovalocytes Cancelled 10/13/18 15:06 Stomatocytes Cancelled 10/13/18 15:06 [place] Bodies Cancelled 10/13/18 15:06 Ramiro Cells Cancelled 10/13/18 15:06 Acanthocytes (Spur) Cancelled 10/13/18 15:06 Schistocytes Cancelled 10/13/18 15:06 Sodium Cancelled 10/13/18 15:06 Potassium Cancelled 10/13/18 15:06 Chloride Cancelled 10/13/18 15:06 Carbon Dioxide Cancelled 10/13/18 15:06 Anion Gap Cancelled 10/13/18 15:06 BUN Cancelled 10/13/18 15:06 Creatinine Cancelled 10/13/18 15:06 Estimated GFR/1.73 m2 Cancelled 10/13/18 15:06 Glucose Cancelled 10/13/18 15:06 Calcium Cancelled 10/13/18 15:06
--- NOTE | 2018-10-14 11:19 | PGE_ITS ---
Date of Service Date of service: 10/14/18 Time of Service: 10:15 Assessment and Plan (1) Hospice care patient: Current visit: Yes Status: Acute Restless. Cooperative but needing supervision. Hard to imagine his , Iona, being able to care for him on her own. If unchanged tomorrow, will need to transition him to respite care. Not sure when bed available to him in community. Did speak with Dr. Limon, of the [facility]. Unable to admit this coming week. Continue to work with CM at [facility] and Emmy Lovelace, Hospice TRANSMITTER TESTER. (2) Frontotemporal dementia: Current visit: Yes Status: Acute Doing ok on the risperidone dosing, though his having refused his dose last night makes it hard to tell his steady state. May need to give Haldol-Depot tomorrow. Will re-evaluate. (3) Vascular dementia with behavior disturbance: Current visit: Yes Status: Acute Subjective Interval history since last seen: Refused his meds last night. Restless this am. Undid his bed. Emptied his suitcase. Busy. Did eat ice cream and butterscotch pudding this am. Took crushed pills in latter. Not oversedated this am. Has sitter with him. Pleasant. Redirectable. Haven't seen family yet today. Asking them to bring in slippers and photos from home. Still not eating much, just drinking diet coke, coffee, eating ice cream and pudding. Requiring one-on-one as he is not safe to be alone. No aggressiveness. Exam Const General: cooperative and healthy appearing Nutritional Appearance: average body habitus Orientation: alert, awake and oriented to person [facility] Head: normal to inspection Ears: hearing grossly normal bilaterally General nose exam: external nose normal Face and sinus: dry mucous membranes Eyes General: appearance normal, both eyes and all related structures Neck Neck: normal visual inspection and no lymphadenopathy Resp Effort & Inspection: normal respiratory effort Auscultation: clear to auscultation bilaterally Cardio Jugular venous pressure: no JVD Rate: regular rate Rhythm: regular rhythm GI Inspection: normal to inspection Palpation: soft Auscultation: normal bowel sounds Skin General skin exam: no rashes or lesions noted and dry skin Neuro General: alert, awake and moves all extremities Cognition: abnormal cognition Speech: abnormal speech garbled and slurred, anomia and expressive aphasia Gait: ataxic Sensory Exam: no sensory deficits noted Extrem General: pedal edema (right worse than left) Psych Appearance: well kempt (has not showered at [facility], allowed sitter to brush his hair for him) Speech and Movement: delayed speech, restless and slowed movement Mood: congruent mood Affect: indifferent and blunted Attitude: cooperative Thought Process: impoverished and loose association Thought Content: other (does not speak enough linked words to enable me to understand content) Insight: poor Judgment: poor Objective Objective Clinical Data: Vital Signs Temperature 96.6 F L 10/13/18 11:46 Temperature Source Tympanic 10/13/18 11:46 Pulse 54 L 10/13/18 11:46 Pulse Rhythm Regular 10/12/18 10:45 Respiratory Rate 20 10/13/18 11:46 Respiratory Effort 10/14/18 03:00 Respiratory Depth Normal 10/14/18 03:00 Respiratory Pattern Normal 10/14/18 03:00 Blood Pressure 113/73 10/13/18 11:46 Pulse Oximetry 100 10/13/18 11:46 Oxygen Delivery Method Room Air 10/13/18 11:46 Oxygen Flow Rate 0 10/13/18 11:46 Pain Level 0 10/12/18 10:45 Comment 10/13/18 11:46 Intake & Output 10/13/18 10/13/18 10/14/18 11:59 23:59 11:59 Intake Total 120 / 120 340 / 340 Balance 120 / 120 340 / 340 Intake: Oral 120 / 120 340 / 340 Other: Urine Color Yellow Urine Appearance Clear Comment pt incontinent of small amounts of urine. urinated in bed and on the floor Stool Size Large Stool Characteristics Soft Formed Brown Voiding Methods Diaper Incontinent Toilet Incontinent Laboratory Results WBC Cancelled 10/13/18 15:06 RBC Cancelled 10/13/18 15:06 Hgb Cancelled 10/13/18 15:06 Hct Cancelled 10/13/18 15:06 MCV Cancelled 10/13/18 15:06 MCH Cancelled 10/13/18 15:06 MCHC Cancelled 10/13/18 15:06 RDW Cancelled 10/13/18 15:06 Plt Count Cancelled 10/13/18 15:06 MPV Cancelled 10/13/18 15:06 Abs Immat Gran (auto) Cancelled 10/13/18 15:06 Immature Gran % Cancelled 10/13/18 15:06 Neutrophils % Cancelled 10/13/18 15:06 Lymphocytes % Cancelled 10/13/18 15:06 Monocytes % Cancelled 10/13/18 15:06 Eosinophils % Cancelled 10/13/18 15:06 Basophils % Cancelled 10/13/18 15:06 Absolute Neutrophils Cancelled 10/13/18 15:06 Band Neutrophils Cancelled 10/13/18 15:06 Absolute Lymphocytes Cancelled 10/13/18 15:06 Absolute Monocytes Cancelled 10/13/18 15:06 Absolute Eosinophils Cancelled 10/13/18 15:06 Absolute Basophils Cancelled 10/13/18 15:06 Metamyelocytes Cancelled 10/13/18 15:06 Myelocytes Cancelled 10/13/18 15:06 Promyelocytes Cancelled 10/13/18 15:06 Nucleated RBCs Cancelled 10/13/18 15:06 Differential Comment Cancelled 10/13/18 15:06 Atypical Lymphocytes Cancelled 10/13/18 15:06 Other Cell Type Cancelled 10/13/18 15:06 RBC Morphology Cancelled 10/13/18 15:06 Polychromasia Cancelled 10/13/18 15:06 Hypochromasia Cancelled 10/13/18 15:06 Poikilocytosis Cancelled 10/13/18 15:06 Basophilic Stippling Cancelled 10/13/18 15:06 Anisocytosis Cancelled 10/13/18 15:06 Microcytosis Cancelled 10/13/18 15:06 Macrocytosis Cancelled 10/13/18 15:06 Spherocytes Cancelled 10/13/18 15:06 Target Cells Cancelled 10/13/18 15:06 Tear Drop Cells Cancelled 10/13/18 15:06 Ovalocytes Cancelled 10/13/18 15:06 Stomatocytes Cancelled 10/13/18 15:06 [place] Bodies Cancelled 10/13/18 15:06 Ramiro Cells Cancelled 10/13/18 15:06 Acanthocytes (Spur) Cancelled 10/13/18 15:06 Schistocytes Cancelled 10/13/18 15:06 Sodium Cancelled 10/13/18 15:06 Potassium Cancelled 10/13/18 15:06 Chloride Cancelled 10/13/18 15:06 Carbon Dioxide Cancelled 10/13/18 15:06 Anion Gap Cancelled 10/13/18 15:06 BUN Cancelled 10/13/18 15:06 Creatinine Cancelled 10/13/18 15:06 Estimated GFR/1.73 m2 Cancelled 10/13/18 15:06 Glucose Cancelled 10/13/18 15:06 Calcium Cancelled 10/13/18 15:06
--- NOTE | 2018-10-15 07:24 | W.PM.PROGNOT ---
Date of Service Date of service: 10/15/18 Time of Service: 07:00 Assessment and Plan (1) Hospice care patient: Current visit: Yes Status: Acute CHANGING TO RESPITE CARE STATUS as of today. Will need to be discharged on Tuesday the . Not sure where he will be going, to SNF or to daughter's home or to his own home with 24/7 care. unlikely to be able to care for him. Dementia is advanced, still qualifies for hospice level of care. Will call and talk to after signing this note. (2) Frontotemporal dementia: Current visit: Yes Status: Acute Subjective Patient reports: no new complaints Interval history since last seen: Woke up at 04:30. Wet. Resisted getting changed, but cooperated with caregivers given time. (Took about 20 minutes to change his pants). Did take his medication last night. Slept soundly from 8 pm to 4:30 am. Primary nurse reported that he had not been getting medications at home. Still requires one-on-one due to his cognitive impairment. Not aggressive. Not hitting. Not agitated, just restless. Speech garbled, repetitive, non-sensical. Not eating much. Likes ice cream and puddings. Given peanut butter toast this am, but didn't want it. Exam Const General: cooperative, healthy appearing, comfortable, no acute distress and well groomed Nutritional Appearance: average body habitus Orientation: alert, awake and oriented to person Limitations: altered mental status [facility] Head: normal to inspection, normocephalic and atraumatic Ears: hearing grossly normal bilaterally General nose exam: external nose normal Eyes General: appearance normal, both eyes and all related structures Neck Neck: normal visual inspection, no lymphadenopathy and no JVD Resp Effort & Inspection: normal respiratory effort and able to speak in complete sentences Auscultation: clear to auscultation bilaterally Cardio Jugular venous pressure: no JVD Rate: regular rate Rhythm: regular rhythm Heart Sounds: S1 normal and S2 normal GI Inspection: normal to inspection Palpation: soft Auscultation: normal bowel sounds Skin General skin exam: no rashes or lesions noted and dry skin Trauma: no lacerations or abrasions Neuro General: alert and awake Cognition: abnormal cognition Speech: abnormal speech, expressive aphasia and receptive aphasia Motor: strength 5/5 throughout Sensory Exam: no sensory deficits noted Extrem General: edema, muscle atrophy and pedal edema Psych Appearance: grossly normal and well kempt Speech and Movement: delayed speech and slowed movement Mood: euthymic mood Affect: indifferent and blunted Attitude: cooperative Thought Process: illogical, impoverished, loose association and tangential Insight: poor Judgment: poor Objective Objective Clinical Data: Vital Signs Temperature 96.6 F L 10/13/18 11:46 Temperature Source Tympanic 10/13/18 11:46 Pulse 54 L 10/13/18 11:46 Pulse Rhythm Regular 10/12/18 10:45 Respiratory Rate 20 10/13/18 11:46 Respiratory Effort 10/15/18 05:01 Respiratory Depth Normal 10/15/18 05:01 Respiratory Pattern Normal 10/15/18 05:01 Blood Pressure 113/73 10/13/18 11:46 Pulse Oximetry 100 10/13/18 11:46 Oxygen Delivery Method Room Air 10/13/18 11:46 Oxygen Flow Rate 0 10/13/18 11:46 Pain Level 0 10/12/18 10:45 Comment 10/13/18 11:46 Intake & Output 10/14/18 10/14/18 10/15/18 11:59 23:59 11:59 Intake Total 340 / 730 390 / 730 280 / 280 Balance 340 / 730 390 / 730 280 / 280 Intake: Oral 340 / 730 390 / 730 280 / 280 Other: Urine Color Pale Yellow Urine Appearance Clear Urine Odor None Comment urinated in bed and on the floor pt passes urine in the tiolet Incontinent large amount of urine in bed and pullup Stool Size Large Stool Characteristics Soft Formed Brown Voiding Methods Toilet Toilet Diaper Incontinent Incontinent Laboratory Results WBC Cancelled 10/13/18 15:06 RBC Cancelled 10/13/18 15:06 Hgb Cancelled 10/13/18 15:06 Hct Cancelled 10/13/18 15:06 MCV Cancelled 10/13/18 15:06 MCH Cancelled 10/13/18 15:06 MCHC Cancelled 10/13/18 15:06 RDW Cancelled 10/13/18 15:06 Plt Count Cancelled 10/13/18 15:06 MPV Cancelled 10/13/18 15:06 Abs Immat Gran (auto) Cancelled 10/13/18 15:06 Immature Gran % Cancelled 10/13/18 15:06 Neutrophils % Cancelled 10/13/18 15:06 Lymphocytes % Cancelled 10/13/18 15:06 Monocytes % Cancelled 10/13/18 15:06 Eosinophils % Cancelled 10/13/18 15:06 Basophils % Cancelled 10/13/18 15:06 Absolute Neutrophils Cancelled 10/13/18 15:06 Band Neutrophils Cancelled 10/13/18 15:06 Absolute Lymphocytes Cancelled 10/13/18 15:06 Absolute Monocytes Cancelled 10/13/18 15:06 Absolute Eosinophils Cancelled 10/13/18 15:06 Absolute Basophils Cancelled 10/13/18 15:06 Metamyelocytes Cancelled 10/13/18 15:06 Myelocytes Cancelled 10/13/18 15:06 Promyelocytes Cancelled 10/13/18 15:06 Nucleated RBCs Cancelled 10/13/18 15:06 Differential Comment Cancelled 10/13/18 15:06 Atypical Lymphocytes Cancelled 10/13/18 15:06 Other Cell Type Cancelled 10/13/18 15:06 RBC Morphology Cancelled 10/13/18 15:06 Polychromasia Cancelled 10/13/18 15:06 Hypochromasia Cancelled 10/13/18 15:06 Poikilocytosis Cancelled 10/13/18 15:06 Basophilic Stippling Cancelled 10/13/18 15:06 Anisocytosis Cancelled 10/13/18 15:06 Microcytosis Cancelled 10/13/18 15:06 Macrocytosis Cancelled 10/13/18 15:06 Spherocytes Cancelled 10/13/18 15:06 Target Cells Cancelled 10/13/18 15:06 Tear Drop Cells Cancelled 10/13/18 15:06 Ovalocytes Cancelled 10/13/18 15:06 Stomatocytes Cancelled 10/13/18 15:06 [place] Bodies Cancelled 10/13/18 15:06 Ramiro Cells Cancelled 10/13/18 15:06 Acanthocytes (Spur) Cancelled 10/13/18 15:06 Schistocytes Cancelled 10/13/18 15:06 Sodium Cancelled 10/13/18 15:06 Potassium Cancelled 10/13/18 15:06 Chloride Cancelled 10/13/18 15:06 Carbon Dioxide Cancelled 10/13/18 15:06 Anion Gap Cancelled 10/13/18 15:06 BUN Cancelled 10/13/18 15:06 Creatinine Cancelled 10/13/18 15:06 Estimated GFR/1.73 m2 Cancelled 10/13/18 15:06 Glucose Cancelled 10/13/18 15:06 Calcium Cancelled 10/13/18 15:06
[2018-10-15] MEDS: risperiDONE 1 MG TAB PO ×3 (07:40→20:34)
[2018-10-15] MEDS: Sertraline 50 MG TAB 100 MG PO (07:40)
[2018-10-15] MEDS: Divalproex 250 MG TABEC PO (07:41)
[2018-10-15 08:22] VITALS: BP 102/62; PULSE 56; RESP 16; TEMP 36.4; O2SAT 99
--- NOTE | 2018-10-15 14:31 | CMPROGNOTE_ITS ---
Care Management Progress Note Alfredo continues to be closely monitored, per Dr. Arambula he will transition to respite today, with a concrete plan of discharging on Tuesday afternoon. CM will connect with outpatient case manager; Sushma Lovelace regarding discharge planning tomorrow- Tuesday10/16/18.
[2018-10-15] MEDS: Divalproex 125 MG SPRINKLE 500 MG PO (20:33)
[2018-10-15] MEDS: Senna TAB PO (20:34)
[2018-10-16] MEDS: Sertraline 50 MG TAB 100 MG PO (08:13)
[2018-10-16] MEDS: Divalproex 125 MG SPRINKLE 250 MG PO (08:13)
[2018-10-16] MEDS: risperiDONE 1 MG TAB PO ×3 (08:13→20:47)
[2018-10-16 08:32] VITALS: BP 97/65; PULSE 54; RESP 20; TEMP 36; O2SAT 99
--- NOTE | 2018-10-16 10:37 | NUR.NOTE ---
Nursing Note: Mrs. Kelly in to visit pt this am. pt not interactive with during visit. pt's brought in cookies and donuts this am which pt enjoys.
--- NOTE | 2018-10-16 11:40 | NUR.NOTE ---
Nursing Note: 1130: pt declines to change shirt today but does allow for deborah care following bowel movement.
--- NOTE | 2018-10-16 12:16 | PDOC.CMPRO ---
Care Management Progress Note CM left VM for Sushma Lovelace regarding discharge disposition planning. Dr. Arambula reports Alfredo will discharge from [facility] on Tuesday after five days of respite care. CM will continue to follow.
[2018-10-16] MEDS: Acetaminophen 325 MG TAB PO (20:46)
[2018-10-16] MEDS: Senna TAB PO (20:47)
[2018-10-16] MEDS: Divalproex 125 MG SPRINKLE 500 MG PO (20:47)
[2018-10-17] MEDS: Sertraline 50 MG TAB 100 MG PO (09:17)
[2018-10-17] MEDS: Divalproex 125 MG SPRINKLE 250 MG PO (09:17)
[2018-10-17] MEDS: risperiDONE 1 MG TAB PO ×3 (09:17→20:05)
--- NOTE | 2018-10-17 12:27 | PHARADMIT ---
Addendum entered by Miguel Ambrocio III 10/20/18 12:47: VS-OK Wgt-75 kg No Labs No changes Original Note: Addendum entered by Miguel Ambrocio III 10/19/18 11:41: Patient is under 's care for Hospice respite. Plan is for discharge to SNF by Tuesday if CM can arrange placement. VS-OK No Labs Large BM yesterday. Taking Depakote, Risperidone and Sertraline while here. Original Note: Admission Pharmacy Clinical Review hospice respite Code Status DNR/DNI Current Weight Renally Cleared and Narrow Therapeutic Index Meds n/a QTc Value / Action Taken n/a BP Control, Fever BP 97/65 afebrile Electrolytes reviewed n/a DVT Prophylaxis n/a Opiate Usage / Scheduled Bowel Regimen Ordered no/prn Plt/SCr for Heparin / Enoxaparin n/a INR for Warfarin n/a H/H stable, WBC/Bands n/a Antibiotic appropriateness n/a Cultures and Sensitivities n/a Surgical ABX d/c within 24 hr n/a DM control / Insulin Dosing n/a Heart Failure (Check EF%) (NEO's, B-Block, Diuretics) none IV to PO Switch n/a Home Meds Reviewed multiple MACHINE BILLER depressants valproic acid may increase the serum concentration of lorazepam Home Meds Not Ordered aspirin, cetirizine, cholecalciferol, cyanocobalamin, haloperidol, magnesium oxide, melatonin, morphine, prochlorperazine Comments plan is for discharge Tuesday10/20/18 per progress note
--- NOTE | 2018-10-17 12:57 | NUR.NOTE ---
Nursing Note: 10/17/18 1255 Pt appropriate today, no aggressive behavior noted. Eating meals, ambulating in halls with cadre, no issues at this time.
--- NOTE | 2018-10-17 13:09 | CMPROGNOTE_ITS ---
- If Service Date Differs Date of service: 10/17/18 Time of Service: 13:08 Care Management Progress Note CM received notification from Sushma Lovelace [facility], stating that [facility], [facility], and [facility] are in need of information on Alfredo from his hospitalization. CM faxed information to the above listed facilities whom will be in contact with Sushma in regards to placement.
[2018-10-17] MEDS: Senna TAB PO (20:05)
[2018-10-17] MEDS: Divalproex 125 MG SPRINKLE 500 MG PO (20:05)
[2018-10-18] MEDS: Acetaminophen 325 MG TAB PO ×2 (08:49→20:44)
[2018-10-18] MEDS: Divalproex 125 MG SPRINKLE 250 MG PO (08:50)
[2018-10-18] MEDS: Sertraline 50 MG TAB 100 MG PO (08:51)
[2018-10-18] MEDS: risperiDONE 1 MG TAB PO ×3 (08:51→20:44)
--- NOTE | 2018-10-18 09:20 | PDOC.CMPRO ---
Care Management Progress Note Per Sushma Lovelace of [facility]: Placement being sought at [facility] in [place], [place], [facility], [facility], and [facility]-CM will continue to follow and support discharge planning considerations. SHAYNE spoke with Haley of [facility] who reports [facility] and [facility] reported no bed availability. Dr. Arambula requested this advertising writer follow up [place] [facility] [place]; Jaki reported their facility was unable to offer placement as well. Sushma and Haley will continue seeking placement with the support of care management. CM will also attempt to gather demographic information for Johnny children at Dr. Arambula's request.
--- NOTE | 2018-10-18 09:21 | CMPROGNOTE_ITS ---
Care Management Progress Note Per Susmha Lovelace of [facility]: Placement being sought at [facility] in [place], [place], [facility], [facility], and [facility]-CM will continue to follow and support discharge planning considerations. SHAYNE spoke with Haley of [facility] who reports [facility] and [facility] reported no bed availability. Dr. Arambula requested this resume writer follow up with the [facility]; Jaki reported their facility was unable to offer placement as well. Sushma and Haley will continue seeking placement with the support of care management. CM will also attempt to gather demographic information for Johnny children at Dr. Arambula's request.
[2018-10-18] MEDS: Senna TAB PO (20:44)
[2018-10-18] MEDS: Divalproex 125 MG SPRINKLE 500 MG PO (20:44)
[2018-10-19] MEDS: Sertraline 50 MG TAB 100 MG PO (07:40)
[2018-10-19] MEDS: risperiDONE 1 MG TAB PO ×3 (07:41→20:42)
[2018-10-19] MEDS: Divalproex 125 MG SPRINKLE 250 MG PO (07:41)
[2018-10-19 07:50] VITALS: BP 108/67; PULSE 79; RESP 20; TEMP 36.5; O2SAT 98
--- NOTE | 2018-10-19 16:42 | PDOC.CMPRO ---
Care Management Progress Note CM worked with [facility] staff; Dr. Arambula and Sushma Lovelace on disposition. Sushma continues to seek placement at SNF-CM faxed referral to Deonte at [facility] as well. Alfredo is wait-listed for [facility] and awaiting bed availability. Per Sushma, Iona and Lianne are going to meet with Jakifrank Hernandez of [facility] in [place], [place] today for possible placement at her private chcf while awaiting placement. Hospice Respite will be completed tomorrow. CM will continue to support discharge planning considerations.
--- NOTE | 2018-10-19 16:52 | CMPROGNOTE_ITS ---
Care Management Progress Note CM worked with [facility] staff; Dr. Arambula and Sushma Lovelace on disposition. Sushma continues to seek placement at SNF-CM faxed referral to Deonte at [facility] as well. Alfredo is wait-listed for [facility] and awaiting bed availability. Per Sushma, Iona and Lianne are going to meet with Jakifrank Hernandez of [facility] in [place], [place] today for possible placement at her private senior care while awaiting placement. Hospice Respite will be completed tomorrow. CM will continue to support discharge planning considerations.
[2018-10-19] MEDS: Acetaminophen 325 MG TAB PO (20:42)
[2018-10-19] MEDS: Senna TAB PO (20:42)
[2018-10-19] MEDS: Divalproex 125 MG SPRINKLE 500 MG PO (20:43)
[2018-10-20] MEDS: risperiDONE 1 MG TAB PO ×2 (07:59→13:51)
[2018-10-20] MEDS: Sertraline 50 MG TAB 100 MG PO (07:59)
[2018-10-20] MEDS: Divalproex 125 MG SPRINKLE 250 MG PO (07:59)
[2018-10-20 12:13] VITALS: BP 144/84; PULSE 58; RESP 17; TEMP 36.3; O2SAT 100
--- NOTE | 2018-10-20 13:57 | PDOC.CMDIS ---
LACE Index Scoring Tool - Questions: Length of Stay (in days): 4 - 6 Acuity (Admit via E.D.?): Yes Comorbidities: Dementia E.D. Visits: 0 - Answers: Total Score: 10 Risk of Readmission: High Risk Care Management Discharge Reason for Hospitalization: Hospice Symptom Management Discharge Plan: Alfredo will discharge to [facility] in [place], [place]. He will transport via EMS, CM coordinated EMS transport with Mike at [facility] and [facility]. Patient/Family Education Needs: Hospice symptom management/respite stay education. Services Needed at Discharge: Home Health Care Services (Hospice at Private Sn[facility] ), Transportation (Coordinated and billed through Hospice. )
--- NOTE | 2018-10-20 15:11 | CMDISCH_ITS ---
LACE Index Scoring Tool - Questions: Length of Stay (in days): 4 - 6 Acuity (Admit via E.D.?): Yes Comorbidities: Dementia E.D. Visits: 0 - Answers: Total Score: 10 Risk of Readmission: High Risk Care Management Discharge Reason for Hospitalization: Hospice Symptom Management Discharge Plan: Alfredo will discharge to [facility] in [place], [place]. He will transport via EMS, CM coordinated EMS transport with Mike at [facility] and [facility]. Patient/Family Education Needs: Hospice symptom management/respite stay education. Services Needed at Discharge: Home Health Care Services (Hospice at Private Fdc ), Transportation (Coordinated and billed through Hospice. )
--- NOTE | 2018-10-27 08:37 | W.PM.DS.N ---
Date of service: 10/20/18 DS: Diagnosis Discharge Diagnosis (1) Hospice care patient: Status: Acute (2) Frontotemporal dementia: Status: Acute Discharge Plan Disposition Patient Disposition: [facility]ARE FACILITY Condition: Stable Discharge Details Reason For Visit: DEMENTIA WITH AGITATION, HosPICE SYMPTOM MANAGEMEN Admit Date/Time: 10/12/18 10:17 Admit Provider: Patricia Arambula Attending Provider: Patricia Arambula Primary Care Provider: Maynor Roe [facility] Course Hospital Course: Initially, Venkatesh was on symptom management. It was determined that his had not been able to medicate him for several weeks prior to this admission. He was on risperidone 1 mg q 6 at first. This was too strong so we backed down to tid. He had not been receiving any of his depakote at home. We were able to transition him to sprinkles, as he could no longer swallow the long-acting formulation of depakote. (It is not effective when crushed.) Venkatesh has done well on depakote 250 mg q am, 500 mg q pm. He walks on his own, but needs supervision. He eats very little. He needs help with meals. He is incontinent of urine usually and feces sometimes. He was quite restless and agitated without aggressiveness at first. Since TuesdayOctober 15, he has been much calmer. He's sleeping better. He's interacting more. He is redirectable. He was changed over to respite level of hospice care on October 15. He has now completed 5 nights and is being discharged to [facility] in [place]. He remains on waiting lists for various local SNFs. Note that throughout his stay, he did NOT require any haldol PRN and he was never aggressive. Home Meds and New Rx's Prescriptions: New divalproex 125 mg Capsule, Delayed Rel Sprinkle 500 mg PO HS Qty: 120 RF: 0 divalproex 125 mg Capsule, Delayed Rel Sprinkle 250 mg PO DAILY Qty: 60 RF: 0 risperidone [Risperdal] 1 mg Tablet 1 mg PO TID Qty: 42 RF: 0 bisacodyl 10 mg Suppository 10 mg UT BID PRN PRN (Reason: constipation) Qty: 12 RF: 0 lorazepam 0.5 mg Tablet 0.5 mg PO Q4H PRN PRN (Reason: Anxiety) Qty: 10 RF: 0 sennosides [Senokot] 8.6 mg Tablet 8.6 mg PO HS Qty: 10 RF: 0 Continued cetirizine [All Day Allergy (cetirizine)] 10 mg tablet 10 mg PO DAILY PRNRF: 0 sertraline 100 MG tablet 100 mg PO DAILY RF: 0 melatonin 3 mg Tablet 3 mg PO HS PRNRF: 0 prochlorperazine maleate 10 mg Tablet 10 mg PO Q6H PRNRF: 0 acetaminophen [Tylenol Extra Strength] 500 mg Tablet 1,000 mg PO TID RF: 0 hyoscyamine sulfate 0.125 mg Tablet,Disintegrating PO Q4H PRN (Reason: Secretions) RF: 0 polyethylene glycol 3350 [Miralax] 17 gram/dose Powder 17 g PO DAILY RF: 0 morphine concentrate 20 mg/mL Syringe Sublingual Q1H PRNRF: 0 Discontinued risperidone [Risperdal] 0.5 mg tablet 0.5 mg PO DAILY RF: 0 divalproex [Depakote] 250 mg tablet,delayed release (DR/EC) 250 mg PO BID Qty: 90 RF: 6 magnesium oxide 400 MG tablet 400 mg PO DAILY RF: 0 simvastatin 20 MG tablet 20 mg PO DAILY RF: 0 aspirin [Aspirin Low-Strength] 81 MG tablet,chewable 81 mg PO DAILY RF: 0 cholecalciferol (vitamin D3) 1,000 UNIT tablet 2 tab PO DAILY RF: 0 cyanocobalamin (vitamin B-12) [Vitamin B-12] 1,000 mcg Tablet 1,000 mcg PO DAILY RF: 0 Fleet Enema 19-7 gram/118 mL Enema 197 ml UT DAILY RF: 0 haloperidol lactate [Haldol] 5 mg/mL Solution 0.5 ml Q6H PRN (Reason: Agitation) RF: 0 lorazepam [Ativan] 1 mg Tablet 1 mg PO Q6H RF: 0 acetaminophen [Tylenol] 325 mg Capsule 650 mg PO Q6H PRNRF: 0 No Action trazodone 50 mg Tablet 50 mg PO DAILY RF: 0 Discharge Instructions Instructions: Dementia (GEN) Additional Instructions: Venkatesh will need a few days to adjust to his new surroundings. Care Plan Goals: stay comfortable Stand Alone Forms: Nursing Discharge Form Referrals: Patricia Arambula MD [ [facility] STAFF PHYSICIAN] - Activity:: Activity as Tolerated Equipment/Supplies:: No Equipment Needed Diet:: As Tolerated Discharge Orders Discharge Orders: Discharge Order (Routine); Ordered 10/20/18 Ordered By: Patricia Brizuela Ready Discharge Data Discharge Date/Time-TO BE ENTERED AT DEPARTURE: 10/20/18 15:27 DS: Summary Status at Discharge Overall status at discharge: patient is progressing back to baseline Time Spent with Patient Greater than 30 minutes Specific discharge activities: [facility] [place] care too great for frail elderly will need close follow up as he transitions to new home Exam Const General: cooperative, healthy appearing, comfortable, no acute distress and well groomed Nutritional Appearance: average body habitus Orientation: alert, awake and oriented to person Limitations: altered mental status HENMT Head: normal to inspection, normocephalic and atraumatic Ears: hearing grossly normal bilaterally General nose exam: external nose normal Eyes General: appearance normal, both eyes and all related structures Neck Neck: normal visual inspection, no lymphadenopathy and no JVD Resp Effort & Inspection: normal respiratory effort and able to speak in complete sentences Auscultation: clear to auscultation bilaterally Cardio Jugular venous pressure: no JVD Rate: regular rate Rhythm: regular rhythm Heart Sounds: S1 normal and S2 normal GI Inspection: normal to inspection Palpation: soft Auscultation: normal bowel sounds Skin General skin exam: no rashes or lesions noted and dry skin Trauma: no lacerations or abrasions Neuro General: alert and awake Cognition: abnormal cognition Speech: abnormal speech, expressive aphasia and receptive aphasia Motor: strength 5/5 throughout Sensory Exam: no sensory deficits noted Extrem General: edema, muscle atrophy and pedal edema Psych Appearance: grossly normal and well kempt Speech and Movement: delayed speech and slowed movement Mood: euthymic mood Affect: indifferent and blunted Attitude: cooperative Thought Process: illogical, impoverished, loose association and tangential Insight: poor Judgment: poor DS: Data Vitals/I&O Vitals and I&O: Vital Signs Temperature 97.3 F L 10/20/18 12:13 Temperature Source Tympanic 10/20/18 12:13 Pulse 58 L 10/20/18 12:13 Pulse Rhythm Regular 10/12/18 10:45 Respiratory Rate 17 10/20/18 12:13 Respiratory Effort Non-Labored 10/20/18 08:00 Respiratory Depth Normal 10/20/18 08:00 Respiratory Pattern Normal 10/20/18 08:00 Blood Pressure 144/84 H 10/20/18 12:13 Pulse Oximetry 100 10/20/18 12:13 Oxygen Delivery Method Room Air 10/20/18 12:13 Oxygen Flow Rate 0 10/20/18 12:13 Pain Level 0 10/12/18 10:45 Comment 10/16/18 08:32 [facility] Medical History Hypomagnesemia (Acute) Actinic keratitis (Acute) Bradycardia (Chronic) Generalized headaches (Chronic) Vitamin D deficiency (Chronic) Depression (Chronic) Hypertension (Chronic) Anxiety (Chronic) Alzheimer's dementia (Chronic) Hospice care patient (Acute) Frontotemporal dementia (Chronic) Vascular dementia (Chronic) Social History adopted: No caregiver/support person: Yes foster care: No household members: spouse housing: house lives independently: No number of children: 2 number of grandchildren: 2 current occupational status: retired leisure activities: clubs well-balanced diet: about half the time eating out: rarely or never reads food labels: seldom or never Smoking/Tobacco Use Status: Former Tobacco Use seatbelt use: always working smoke detector in home: Yes fire extinguisher in home: No carbon monox detector in home: Yes firearms in home: No
--- NOTE | 2018-10-27 08:41 | DSE_ITS ---
Date of service: 10/20/18 DS: Diagnosis Discharge Diagnosis (1) Hospice care patient: Status: Acute (2) Frontotemporal dementia: Status: Acute Discharge Plan Disposition Patient Disposition: [facility] Condition: Stable Discharge Details Reason For Visit: DEMENTIA WITH AGITATION, HosPICE SYMPTOM MANAGEMEN Admit Date/Time: 10/12/18 10:17 Admit Provider: Patricia Arambula Attending Provider: Patricia Arambula Primary Care Provider: Maynor Roe [facility] Course Hospital Course: Initially, Venkatesh was on symptom management. It was determined that his had not been able to medicate him for several weeks prior to this admission. He was on risperidone 1 mg q 6 at first. This was too strong so we backed down to tid. He had not been receiving any of his depakote at home. We were able to transition him to sprinkles, as he could no longer swallow the long-acting formulation of depakote. (It is not effective when crushed.) Venkatesh has done well on depakote 250 mg q am, 500 mg q pm. He walks on his own, but needs supervision. He eats very little. He needs help with meals. He is incontinent of urine usually and feces sometimes. He was quite restless and agitated without aggressiveness at first. Since TuesdayOctober 15, he has been much calmer. He's sleeping better. He's interacting more. He is redirectable. He was changed over to respite level of hospice care on October 15. He has now completed 5 nights and is being discharged to [facility] in [place]. He remains on waiting lists for various local SNFs. Note that throughout his stay, he did NOT require any haldol PRN and he was never aggressive. Home Meds and New Rx's Prescriptions: New divalproex 125 mg Capsule, Delayed Rel Sprinkle 500 mg PO HS Qty: 120 RF: 0 divalproex 125 mg Capsule, Delayed Rel Sprinkle 250 mg PO DAILY Qty: 60 RF: 0 risperidone [Risperdal] 1 mg Tablet 1 mg PO TID Qty: 42 RF: 0 bisacodyl 10 mg Suppository 10 mg MO BID PRN PRN (Reason: constipation) Qty: 12 RF: 0 lorazepam 0.5 mg Tablet 0.5 mg PO Q4H PRN PRN (Reason: Anxiety) Qty: 10 RF: 0 sennosides [Senokot] 8.6 mg Tablet 8.6 mg PO HS Qty: 10 RF: 0 Continued cetirizine [All Day Allergy (cetirizine)] 10 mg tablet 10 mg PO DAILY PRNRF: 0 sertraline 100 MG tablet 100 mg PO DAILY RF: 0 melatonin 3 mg Tablet 3 mg PO HS PRNRF: 0 prochlorperazine maleate 10 mg Tablet 10 mg PO Q6H PRNRF: 0 acetaminophen [Tylenol Extra Strength] 500 mg Tablet 1,000 mg PO TID RF: 0 hyoscyamine sulfate 0.125 mg Tablet,Disintegrating PO Q4H PRN (Reason: Secretions) RF: 0 polyethylene glycol 3350 [Miralax] 17 gram/dose Powder 17 g PO DAILY RF: 0 morphine concentrate 20 mg/mL Syringe Sublingual Q1H PRNRF: 0 Discontinued risperidone [Risperdal] 0.5 mg tablet 0.5 mg PO DAILY RF: 0 divalproex [Depakote] 250 mg tablet,delayed release (DR/EC) 250 mg PO BID Qty: 90 RF: 6 magnesium oxide 400 MG tablet 400 mg PO DAILY RF: 0 simvastatin 20 MG tablet 20 mg PO DAILY RF: 0 aspirin [Aspirin Low-Strength] 81 MG tablet,chewable 81 mg PO DAILY RF: 0 cholecalciferol (vitamin D3) 1,000 UNIT tablet 2 tab PO DAILY RF: 0 cyanocobalamin (vitamin B-12) [Vitamin B-12] 1,000 mcg Tablet 1,000 mcg PO DAILY RF: 0 Fleet Enema 19-7 gram/118 mL Enema 197 ml MO DAILY RF: 0 haloperidol lactate [Haldol] 5 mg/mL Solution 0.5 ml Q6H PRN (Reason: Agitation) RF: 0 lorazepam [Ativan] 1 mg Tablet 1 mg PO Q6H RF: 0 acetaminophen [Tylenol] 325 mg Capsule 650 mg PO Q6H PRNRF: 0 No Action trazodone 50 mg Tablet 50 mg PO DAILY RF: 0 Discharge Instructions Instructions: Dementia (GEN) Additional Instructions: Venkatesh will need a few days to adjust to his new surroundings. Care Plan Goals: stay comfortable Stand Alone Forms: Nursing Discharge Form Referrals: Patricia Arambula MD [ [facility]] - Activity:: Activity as Tolerated Equipment/Supplies:: No Equipment Needed Diet:: As Tolerated Discharge Orders Discharge Orders: Discharge Order (Routine); Ordered 10/20/18 Ordered By: Patricia Brizuela Ready Discharge Data Discharge Date/Time-TO BE ENTERED AT DEPARTURE: 10/20/18 15:27 DS: Summary Status at Discharge Overall status at discharge: patient is progressing back to baseline Time Spent with Patient Greater than 30 minutes Specific discharge activities: moving to community custodial in [place] care too great for frail elderly will need close follow up as he transitions to new home Exam Const General: cooperative, healthy appearing, comfortable, no acute distress and well groomed Nutritional Appearance: average body habitus Orientation: alert, awake and oriented to person Limitations: altered mental status HENMT Head: normal to inspection, normocephalic and atraumatic Ears: hearing grossly normal bilaterally General nose exam: external nose normal Eyes General: appearance normal, both eyes and all related structures Neck Neck: normal visual inspection, no lymphadenopathy and no JVD Resp Effort & Inspection: normal respiratory effort and able to speak in complete sentences Auscultation: clear to auscultation bilaterally Cardio Jugular venous pressure: no JVD Rate: regular rate Rhythm: regular rhythm Heart Sounds: S1 normal and S2 normal GI Inspection: normal to inspection Palpation: soft Auscultation: normal bowel sounds Skin General skin exam: no rashes or lesions noted and dry skin Trauma: no lacerations or abrasions Neuro General: alert and awake Cognition: abnormal cognition Speech: abnormal speech, expressive aphasia and receptive aphasia Motor: strength 5/5 throughout Sensory Exam: no sensory deficits noted Extrem General: edema, muscle atrophy and pedal edema Psych Appearance: grossly normal and well kempt Speech and Movement: delayed speech and slowed movement Mood: euthymic mood Affect: indifferent and blunted Attitude: cooperative Thought Process: illogical, impoverished, loose association and tangential Insight: poor Judgment: poor DS: Data Vitals/I&O Vitals and I&O: Vital Signs Temperature 97.3 F L 10/20/18 12:13 Temperature Source Tympanic 10/20/18 12:13 Pulse 58 L 10/20/18 12:13 Pulse Rhythm Regular 10/12/18 10:45 Respiratory Rate 17 10/20/18 12:13 Respiratory Effort Non-Labored 10/20/18 08:00 Respiratory Depth Normal 10/20/18 08:00 Respiratory Pattern Normal 10/20/18 08:00 Blood Pressure 144/84 H 10/20/18 12:13 Pulse Oximetry 100 10/20/18 12:13 Oxygen Delivery Method Room Air 10/20/18 12:13 Oxygen Flow Rate 0 10/20/18 12:13 Pain Level 0 10/12/18 10:45 Comment 10/16/18 08:32 COUNTS INCLUDE 234 BEDS AT THE [facility] Medical History Hypomagnesemia (Acute) Actinic keratitis (Acute) Bradycardia (Chronic) Generalized headaches (Chronic) Vitamin D deficiency (Chronic) Depression (Chronic) Hypertension (Chronic) Anxiety (Chronic) Alzheimer's dementia (Chronic) Hospice care patient (Acute) Frontotemporal dementia (Chronic) Vascular dementia (Chronic) Social History adopted: No caregiver/support person: Yes foster care: No household members: spouse housing: house lives independently: No number of children: 2 number of grandchildren: 2 current occupational status: retired leisure activities: clubs well-balanced diet: about half the time eating out: rarely or never reads food labels: seldom or never Smoking/Tobacco Use Status: Former Tobacco Use seatbelt use: always working smoke detector in home: Yes fire extinguisher in home: No carbon monox detector in home: Yes firearms in home: No
== END 2018-10-20 15:27 | disposition designated cancer center or children's hospital (05) | DRG 884 ==
PROVIDERS: Admitting Provider Family Medicine; PCP Family Medicine; Visit Provider Family Medicine
DX: F01.51 Vascular dementia, unspecified severity, with behavioral disturbance (principal); F02.81 Dementia in other diseases classified elsewhere, unspecified severity, with behavioral disturbance; G31.09 Other frontotemporal neurocognitive disorder; Z51.5 Encounter for palliative care; R32 Unspecified urinary incontinence; I10 Essential (primary) hypertension; R53.83 Other fatigue; T42.4X5A Adverse effect of benzodiazepines, initial encounter; T43.595A Adverse effect of other antipsychotics and neuroleptics, initial encounter
CPT/HCPCS: 80048; 99223; 99232; 99233; 99239; 85025